=== PATIENT | female | born 1995 | race Caucasian/White ===

== ENCOUNTER 2017-10-30 17:27 | Emergency (ER) | payer OTHER ==
[~2017-10-30] VITALS: Ht 165.1 cm; Wt 63.5 kg
[~2017-10-30 17:27] MED LIST: CEPH250A PO; CIPR250 PO; CODACE30 PO; LORA10ER; PHENA100 PO; Pyridium200 MG PO; RXCEPH250S PO; SULTRISS PO; Zithromax250 MG PO
[2017-10-30] MEDS ORDERED: NEOPOLHCSU RIGHTEAR (18:28)
[2017-10-30] MEDS ORDERED: Veetids 500500 MG PO (18:28)
== END 2017-10-30 19:00 | disposition home or self-care (01) ==
LOC: ER 17:27
DX: H66.91 Otitis media, unspecified, right ear (principal); H60.91 Unspecified otitis externa, right ear; F17.200 Nicotine dependence, unspecified, uncomplicated; Z88.2 Allergy status to sulfonamides; Z88.1 Allergy status to other antibiotic agents
CPT/HCPCS: 99283

== ENCOUNTER 2018-10-29 14:37 | Emergency (ER) | payer OTHER ==
[~2018-10-29] VITALS: Ht 170.2 cm; Wt 61.2 kg
[~2018-10-29 14:37] MED LIST changes: +NEOPOLHCSU RIGHTEAR; +Veetids 500500 MG PO
== END 2018-10-29 17:00 | disposition home or self-care (01) ==
LOC: ER 14:37
DX: S71.131A Puncture wound without foreign body, right thigh, initial encounter (principal); W14.XXXA Fall from tree, initial encounter; W22.8XXA Striking against or struck by other objects, initial encounter; Z88.2 Allergy status to sulfonamides; Z88.1 Allergy status to other antibiotic agents; F17.200 Nicotine dependence, unspecified, uncomplicated
CPT/HCPCS: 73552; 99283-25

== ENCOUNTER 2019-05-07 22:14 | Emergency (ER) | payer OTHER ==
[~2019-05-07] VITALS: Ht 167.6 cm; Wt 63.5 kg
[2019-05-08 00:23] LABS: BASOPHILS ABSOLUTE AUTO 0.03 K/mm3 (0.00-0.23); BASOPHILS PERCENT AUTO 0 % (0-2); EOSINOPHILS ABSOLUTE AUTO 0.04 K/mm3 (0.00-0.68); EOSINOPHILS PERCENT AUTO 0 % (0-6); Hematocrit 41.1 % (33.0-51.0); Hemoglobin 13.7 g/dL (11.5-16.0); IMMATURE GRAN ABSOLUTE AUTO 0.02 K/mm3 (0.00-0.10); IMMATURE GRAN PERCENT AUTO 0 % (0-1); LYMPHOCYTES PERCENT AUTO 32 % (21-46); MONOCYTES ABSOLUTE AUTO 0.75 K/mm3 (0.16-1.47); MONOCYTES PERCENT AUTO 8 % (4-13); Mean Corpuscular HGB 32.2 pg (26.0-34.0); Mean Corpuscular HGB Conc 33.3 g/dL (31.5-36.5); Mean Corpuscular Volume 97 fL (80-100); Mean Platelet Volume 10.2 fL (9.1-12.4); NEUTROPHILS PERCENT AUTO 60 % (41-73); Platelet Count 255 K/mm3 (150-400); RDW Coefficient Variation 11.7 % (11.7-14.2); RDW Standard Deviation 41.8 fL (35.1-46.3); Red Blood Cell Count 4.26 M/mm3 (3.80-5.20); White Blood Cell Count 10.04 K/mm3 (4.00-11.30)
[2019-05-08 00:53] LABS: Anion Gap 8 mmol/L (6-16); Blood Urea Nitrogen 9 mg/dL (8-24); Bun/Creatinine Ratio 13.5 (12.0-20.0); C-REACTIVE PROTEIN, EXT RANGE <0.290 mg/dL (0.000-0.300); CO2, Blood 26 mmol/L (21-32); Calcium, Blood 9.1 mg/dL (8.5-10.1); Chloride, Blood 105 mmol/L (98-108); Creatinine, Blood 0.67 mg/dL (0.40-1.00); Glomerular Filtration Rate >60 (60-); Glucose, Blood 80 mg/dL (70-99); Potassium, Blood 3.7 mmol/L (3.5-5.5); Sodium, Blood 139 mmol/L (136-145)
== END 2019-05-08 01:13 | disposition home or self-care (01) ==
LOC: ER 22:14
PROVIDERS: Physician Assistant
DX: M79.661 Pain in right lower leg (principal); Z88.2 Allergy status to sulfonamides; Z88.8 Allergy status to other drugs, medicaments and biological substances; F17.200 Nicotine dependence, unspecified, uncomplicated
CPT/HCPCS: 36415; 80048; 85025; 85651; 86140; 99283

== ENCOUNTER 2020-05-18 12:07 | Emergency (ER) | payer SELFPAY ==
[~2020-05-18] VITALS: Ht 170.2 cm; Wt 61.2 kg
[2020-05-18] MEDS ORDERED: Norco 5-325 Ta1 EACH PO (14:59)
[2020-05-18] MEDS ORDERED: AMOCLA875 PO (14:59)
== END 2020-05-18 15:10 | disposition home or self-care (01) ==
LOC: ER 12:07
DX: S62.623B Displaced fracture of middle phalanx of left middle finger, initial encounter for open fracture (principal); Z88.2 Allergy status to sulfonamides; Z88.8 Allergy status to other drugs, medicaments and biological substances; F17.210 Nicotine dependence, cigarettes, uncomplicated; W54.0XXA Bitten by dog, initial encounter
CPT/HCPCS: 73140; 99283-25; A9270-GY

== ENCOUNTER 2020-06-25 12:35 | Emergency (ER) | payer SELFPAY ==
[~2020-06-25] VITALS: Ht 170.2 cm; Wt 60.3 kg
[~2020-06-25 12:35] MED LIST changes: +AMOCLA875 PO; +Norco 5-325 Ta1 EACH PO
== END 2020-06-25 15:16 | disposition left against medical advice (07) ==
LOC: ER 12:35
DX: Z53.21 Procedure and treatment not carried out due to patient leaving prior to being seen by health care provider (principal)

== ENCOUNTER 2021-04-15 11:33 | Observation (INO) | payer OTHER ==
[~2021-04-15] VITALS: Ht 165.1 cm; Wt 63.3 kg
[2021-04-15 12:21] LABS: BASOPHILS ABSOLUTE AUTO 0.03 K/mm3 (0.00-0.23); BASOPHILS PERCENT AUTO 0 % (0-2); EOSINOPHILS PERCENT AUTO 0 % (0-6); Hemoglobin 14.6 g/dL (11.5-16.0); IMMATURE GRAN ABSOLUTE AUTO 0.03 K/mm3 (0.00-0.10); IMMATURE GRAN PERCENT AUTO 0 % (0-1); LYMPHOCYTES ABSOLUTE AUTO 0.93 K/mm3 (0.84-5.20); LYMPHOCYTES PERCENT AUTO 7 % (21-46); MONOCYTES ABSOLUTE AUTO 0.44 K/mm3 (0.16-1.47); MONOCYTES PERCENT AUTO 3 % (4-13); Mean Corpuscular HGB 30.5 pg (26.0-34.0); Mean Corpuscular HGB Conc 33.2 g/dL (31.5-36.5); Mean Corpuscular Volume 92 fL (80-100); Mean Platelet Volume 10.7 fL (9.1-12.4); NEUTROPHILS ABSOLUTE AUTO 11.84 K/mm3 (1.96-9.15); NEUTROPHILS PERCENT AUTO 89 % (41-73); Platelet Count 276 K/mm3 (150-400); RDW Standard Deviation 40.5 fL (35.1-46.3); Red Blood Cell Count 4.79 M/mm3 (3.80-5.20); White Blood Cell Count 13.27 K/mm3 (4.00-11.30)
[2021-04-15 12:49] LABS: Alanine Aminotransfer (ALT/SGP 19 U/L (12-78); Albumin, Blood 4.5 g/dL (3.4-5.0); Albumin/Globulin Ratio 1.2 (0.8-1.8); Alk Phos 64 U/L (50-136); Anion Gap 8 mmol/L (6-16); Aspartate Aminotrans (AST/SGOT 14 U/L (12-37); Bilirubin, Total 1.1 mg/dL (0.1-1.0); Blood Urea Nitrogen 9 mg/dL (8-24); Bun/Creatinine Ratio 13.4 (12.0-20.0); CO2, Blood 25 mmol/L (21-32); Calcium, Blood 9.4 mg/dL (8.5-10.1); Chloride, Blood 106 mmol/L (98-108); Creatinine, Blood 0.67 mg/dL (0.40-1.00); Globulin, Blood 3.7 g/dL (2.2-4.0); Glomerular Filtration Rate >60 (60-); Glucose, Blood 168 mg/dL (70-99); Potassium, Blood 3.6 mmol/L (3.5-5.5); Sodium, Blood 139 mmol/L (136-145); Total Protein, Blood 8.2 g/dL (6.4-8.2)
[2021-04-15] MEDS ORDERED: ONDA4ODT MM (17:27)
[2021-04-15] MEDS ORDERED: Ativan1 MG PO (17:27)
[2021-04-15] MEDS ORDERED: CATAPRES-TTS 21 EAC1 TOP (17:27)
--- NOTE | 2021-04-16 04:26 | NUR ---
SHIFT SUMMARY NEW ER ADMIT THIS SHIFT (2139), NO ACUTE CHANGES SINCE ASSUMING CARE, MEDICATED PER MAR FOR NAUSEA, SEVERAL BOUTS OF EMESIS THIS SHIFT, A&O, PLEASANT & COOPERATIVE W/CARE, SLEEPING @ THIS TIME, CALL LIGHT IN REACH, WILL CONT TO MONITOR UNTIL REPORT GIVEN TO DAY RN.
[2021-04-16 05:18] LABS: BASOPHILS ABSOLUTE AUTO 0.02 K/mm3 (0.00-0.23); BASOPHILS PERCENT AUTO 0 % (0-2); EOSINOPHILS PERCENT AUTO 0 % (0-6); Hemoglobin 13.5 g/dL (11.5-16.0); IMMATURE GRAN ABSOLUTE AUTO 0.05 K/mm3 (0.00-0.10); IMMATURE GRAN PERCENT AUTO 0 % (0-1); LYMPHOCYTES ABSOLUTE AUTO 1.56 K/mm3 (0.84-5.20); LYMPHOCYTES PERCENT AUTO 13 % (21-46); MONOCYTES ABSOLUTE AUTO 0.86 K/mm3 (0.16-1.47); MONOCYTES PERCENT AUTO 7 % (4-13); Mean Corpuscular HGB 30.5 pg (26.0-34.0); Mean Corpuscular HGB Conc 33.8 g/dL (31.5-36.5); Mean Corpuscular Volume 90 fL (80-100); Mean Platelet Volume 10.4 fL (9.1-12.4); NEUTROPHILS ABSOLUTE AUTO 9.17 K/mm3 (1.96-9.15); NEUTROPHILS PERCENT AUTO 79 % (41-73); Platelet Count 242 K/mm3 (150-400); RDW Coefficient Variation 12.2 % (11.7-14.2); RDW Standard Deviation 40.5 fL (35.1-46.3); Red Blood Cell Count 4.43 M/mm3 (3.80-5.20); White Blood Cell Count 11.66 K/mm3 (4.00-11.30)
[2021-04-16 05:45] LABS: Alanine Aminotransfer (ALT/SGP 18 U/L (12-78); Albumin, Blood 3.8 g/dL (3.4-5.0); Albumin/Globulin Ratio 1.1 (0.8-1.8); Alk Phos 55 U/L (50-136); Anion Gap 6 mmol/L (6-16); Aspartate Aminotrans (AST/SGOT 10 U/L (12-37); Bilirubin, Total 0.8 mg/dL (0.1-1.0); Blood Urea Nitrogen 9 mg/dL (8-24); Bun/Creatinine Ratio 13.6 (12.0-20.0); CO2, Blood 24 mmol/L (21-32); Calcium, Blood 8.5 mg/dL (8.5-10.1); Chloride, Blood 111 mmol/L (98-108); Creatinine, Blood 0.66 mg/dL (0.40-1.00); Globulin, Blood 3.5 g/dL (2.2-4.0); Glomerular Filtration Rate >60 (60-); Glucose, Blood 117 mg/dL (70-99); Potassium, Blood 3.5 mmol/L (3.5-5.5); Sodium, Blood 141 mmol/L (136-145); Total Protein, Blood 7.3 g/dL (6.4-8.2)
--- NOTE | 2021-04-16 13:06 | NUR ---
PT IN [facility] 2ND DEGREE PER EKG DONE BY NIDA MITCHELL, LEAD RAMP AGENT.
--- NOTE | 2021-04-16 15:06 | NUR ---
PT TRANSFERRED TO [facility] FOR EXTERNAL PACING. CALLED REPORT TO JAMES OSEI.
--- NOTE | 2021-04-16 18:37 | NUR ---
REPORT RECEIVED VIA PHONE FROM KEYSHA WEBBER RN AT 1430; PT ARRIVED AT 1500; PT RECEIVED WITH KVO FLUIDS, AN EMESIS BAG IN HAND, AND TELEMETRY MONITORING WITH NO OXYGEN THERAPY WITH PERSONAL EFFECTS AN RN VIA WHEELCHAIR; PT'S MOTHER ARRIVED AND AT BEDSIDE; PT VOMITED IN SPITE OF ONDANSETRON; DR. WILLIS WAS CALLED AT 1639 AND 1703 CONCERNING ANXIETY RX, ADDITIONAL ANTIEMETIC RX, SLEEP AID RX, CARDIOLOGY CONSULT, AND EXTERNAL PACING PLAN; ORDERS PROVIDED PER DEC; ZOLL DEFIBRILLATOR AT BEDSIDE; DR. CALLEJAS CALLED AT 1811 CONCERNING CONSULT; PT GIVEN PHENERGAN PER DEC; PT AND MOTHER DENY ADDITIONAL CONCERNS AT THIS TIME
--- NOTE | 2021-04-17 03:18 | NUR ---
PT WAS HEARD VOMITING IN ROOM. WHEN THIS NURSE ARRIVED PT WAS SHOVING FINGERS DOWN HER THROAT. THIS NURSE WENT NOTIFIED THAT WOULD BE PULLING MEDS FOR NAUSEA AND VOMITING. WHEN THIS NURSE ARRIVED BACK AT ROOM PT WAS STANDING ON BED AND HAD HAD A BOWEL MOVEMENT IN BED. SHE THEN RAN TO THE BATHROOM AND SHOWERED.
--- NOTE | 2021-04-17 05:40 | NUR ---
SHIFT SUMMARY PT IS ALERT AND ORIENTED X4. PT IS ANXIOUS. VITALS ARE STABLE, SATS ABOVE 92% ON ROOM AIR. PT HAS HAD SEVERAL EPISODES OF NAUSEA. THIS NURSE HAS WITNESSED PT SHOVING FINGERS DOWN THROAT WHEN VOMITING. HAS BEEN MEDICATED PER EMAR. PT IS AD TEOFILO IN ROOM AND HAS DENIED CHEST PAIN OR SOB. PT REPORTED HAVING A HEADACHE ONLY FOR PAIN. DURING EPISODE OF N/V PT HAD A LOOSE BM IN BED. CALL LIGHT IS WITHIN REACH. USING CALL LIGHT APPROPRIETLY.
--- NOTE | 2021-04-17 16:17 | NUR ---
echocardiogram complete
--- NOTE | 2021-04-17 17:29 | NUR ---
PT HAD SEVERAL EPISODES OF DIARRHEA AND MILD NAUSEA BUT NO VOMITING; PT HAD ECHOCARDIOGRAM PERFORMED; PT REQUESTED/RECEIVED LORAZEPAM, PHENERGAN, ACETAMINOPHEN, AND MAALOX PER MAR; PT AMBULATED 1X; PT REQUESTED NICOTINE PATCH; DR. WILLIS WAS CALLED AT 1724, ORDERS PROVIDED FOR PATCH QDAY; PT'S MOTHER AT BEDSIDE; PT DENIES ADDITIONAL CONCERNS AT THIS TIME; PT'S MOTHER DENIES FURTHER QUESTIONS
--- NOTE | 2021-04-17 19:59 | NUR ---
ASSUMED CARE PT IS ALERT AND ORIENTED. PT VERY ANXIOUS AT THE TIME. VITALS ARE STABLE AND ON ROOM AIR WITH SATS ABOVE 92%. PT HAD TAKEN OFF NICOTINE PATCH EARLIER TODAY AND WANTED IT TAPED BACK ON CHEST AREA. PT IS VERY IMPLUSIVE FLINGING THINGS OFF AND ON BED. AT ONE POINT HAD LOST SOMETHING IN BED SHE JUMPED AND STOOD ON BED, TUGGING ON CORDS AND TUBES, WHILE THIS NURSE WAS DOING VITALS.
--- NOTE | 2021-04-17 21:02 | NUR ---
PT WANTING MORE MEDICATION ADDED FOR SLEEP OR INCREASE ON DOSAGE. TALKED TO RUY BEARD, NO FUTHER ORDERS GIVEN.
[2021-04-18 04:03] LABS: Albumin, Blood 3.9 g/dL (3.4-5.0); Anion Gap 6 mmol/L (6-16); Blood Urea Nitrogen 13 mg/dL (8-24); Bun/Creatinine Ratio 15.7 (12.0-20.0); CO2, Blood 26 mmol/L (21-32); Calcium, Blood 8.7 mg/dL (8.5-10.1); Chloride, Blood 107 mmol/L (98-108); Creatinine, Blood 0.83 mg/dL (0.40-1.00); Glomerular Filtration Rate >60 (60-); Glucose, Blood 98 mg/dL (70-99); Phosphorus, Blood 3.3 mg/dL (2.5-4.9); Potassium, Blood 3.1 mmol/L (3.5-5.5); Sodium, Blood 139 mmol/L (136-145)
--- NOTE | 2021-04-18 05:47 | NUR ---
SHIFT SUMMARY PT IS ALERT AND ORIENTED. PT HAS BEEN RESTLESS T/O THE NIGHT AND SOMETIMES AGITATED. PT HAS ASKED SEVERAL TIMES FOR MORE SLEEP MEDICATION AND "EXTRA FOR RESTLESSNESS. TALKED TO ADMINISTRATOR REGARDING MEDICATIONS AND NO ORDER WAS GIVEN. PT'S VITALS ARE STABLE AND ON ROOM AIR. PT STS THAT SHE IS HAVING SOME DISCOMFORT IN CHEST BUT MOSTLY WHEN FEELING NAUSEAS. PT IS AD TEOFILO IN ROOM. USING CALL LIGHT APPROPRIETLY. CALL LIGHT IS WITHIN REACH.
[2021-04-18] MEDS ORDERED: MELATONIN 5 MG1 EACH PO (13:46)
[2021-04-18] MEDS ORDERED: PROM25 PO (13:47)
--- NOTE | 2021-04-18 15:00 | NUR ---
DISCHARGE DISCHARGE INSTRUCTIONS PROVIDED TO PT AND PT EDUCATED ON NEW MEDICATIONS AND MEDICATION CHANGES. ALL QUESTIONS ANSWERED. PT OFFERED WC OUT, BUT REFUSED AND WALKED OUT.
== END 2021-04-18 15:00 | disposition home or self-care (01) ==
LOC: ER 11:33 → PCU 11:34 → MEDS 11:34 → PCU 04-16 15:06
PROVIDERS: Emergency Medicine; Internal Medicine; ADMIT Internal Medicine
DX: F11.13 Opioid abuse with withdrawal (principal); I10 Essential (primary) hypertension; R00.1 Bradycardia, unspecified; R11.2 Nausea with vomiting, unspecified; R19.7 Diarrhea, unspecified; F17.210 Nicotine dependence, cigarettes, uncomplicated; Z88.1 Allergy status to other antibiotic agents; Z88.2 Allergy status to sulfonamides; G47.00 Insomnia, unspecified
CPT/HCPCS: 36415; 80053; 80069; 83690; 84484; 84703; 85025; 93005; 93010; 93306; 96374; 96375; 96376; 99285-25; A9270; C1751; C9113; G0378; J1790; J2060; J2405; J2550; J2765; J3480; J7030

== ENCOUNTER 2021-05-22 15:37 | Emergency (ER) | payer OTHER ==
[~2021-05-22] VITALS: Ht 167.6 cm; Wt 61.2 kg
[~2021-05-22 15:37] MED LIST changes: +Ativan1 MG PO; +CATAPRES-TTS 21 EAC1 TOP; +MELATONIN 5 MG1 EACH PO; +ONDA4ODT MM; +PROM25 PO
== END 2021-05-22 17:59 | disposition left against medical advice (07) ==
LOC: ER 15:37
DX: F11.23 Opioid dependence with withdrawal (principal); Z53.21 Procedure and treatment not carried out due to patient leaving prior to being seen by health care provider
CPT/HCPCS: 99283

== ENCOUNTER → 2021-06-29 | Outpatient (CLI) | payer OTHER ==
[2021-07-01 03:11] LABS: CHLAMYDIA TRACHOMATIS, NAA Negative (Negative)
== END ==
LOC: LAB SHORT 15:11 → LAB 15:11
PROVIDERS: Physician Assistant Medical
DX: R30.9 Painful micturition, unspecified (principal); Z88.2 Allergy status to sulfonamides
CPT/HCPCS: 87077; 87086; 87186; 87491; 87591

== ENCOUNTER → 2022-09-16 | Outpatient (CLI) | payer OTHER | END | disposition home or self-care (01) | LOC: LAB SHORT 12:35 | DX: H04.309 Unspecified dacryocystitis of unspecified lacrimal passage (principal) | CPT/HCPCS: 87070; 87075; 87077; 87186; 87205 ==

== ENCOUNTER → 2024-08-18 | Outpatient (CLI) | payer OTHER | END | disposition home or self-care (01) | LOC: LAB SHORT 18:49 → LAB 18:49 | PROVIDERS: Family Medicine | DX: Z12.4 Encounter for screening for malignant neoplasm of cervix (principal) | CPT/HCPCS: G0123 ==

== ENCOUNTER 2025-09-28 11:01 | Emergency (ER) | payer OTHER ==
[~2025-09-28] VITALS: Ht 165.1 cm; Wt 63.5 kg
[2025-09-28 11:08] VITALS: BP 129/78
[2025-09-28] MEDS ORDERED: PSEU120ER PO (11:13)
[2025-09-28] MEDS ORDERED: IBUP600 PO (11:13)
== END 2025-09-28 11:15 | disposition home or self-care (01) ==
LOC: ER 11:01
DX: J06.9 Acute upper respiratory infection, unspecified (principal); F17.210 Nicotine dependence, cigarettes, uncomplicated; Z88.2 Allergy status to sulfonamides; Z88.1 Allergy status to other antibiotic agents
CPT/HCPCS: 99283